=== PATIENT | male | born 1965 | race Caucasian/White ===

== ENCOUNTER 2017-06-08 08:57 | Day surgery (SDC) | payer OTHER ==
[~2017-06-08] VITALS: Ht 182.9 cm; Wt 83.9 kg
[2017-06-08] MEDS ORDERED: METOPROLOL TART25 MG PO (10:05)
[2017-06-08] MEDS ORDERED: LANTUS SOL100 UNIT/1 SUB-Q (10:06)
[2017-06-08] MEDS ORDERED: SIMVASTATIN20 MG PO (10:06)
[2017-06-08] MEDS ORDERED: LISINOPRIL-HCT1 EAC1 PO (10:06)
[2017-06-08] MEDS ORDERED: METFORMIN HCL1000 MG PO (10:07)
[2017-06-08] MEDS ORDERED: GLUCOTROL5 MG PO (10:07)
--- NOTE | 2017-06-08 10:14 | NUR ---
BLOOD SUGAR 145
== END 2017-06-08 12:00 | disposition home or self-care (01) ==
LOC: DSVR 08:57 → OPS 08:57 → DS 10:15 → OPS 12:00
PROVIDERS: Ophthalmology
PROC: 08RJ3JZ Replacement of Right Lens with Synthetic Substitute, Percutaneous Approach (ICD-10-PCS; principal; 2017-06-08 10:15)
DX: H25.813 Combined forms of age-related cataract, bilateral (principal); F17.200 Nicotine dependence, unspecified, uncomplicated; E11.9 Type 2 diabetes mellitus without complications; I10 Essential (primary) hypertension; Z98.890 Other specified postprocedural states; Z79.84 Long term (current) use of oral hypoglycemic drugs; Z79.899 Other long term (current) drug therapy
CPT/HCPCS: J2250

== ENCOUNTER 2017-06-22 08:16 | Day surgery (SDC) | payer OTHER ==
[~2017-06-22] VITALS: Ht 182.9 cm; Wt 83.9 kg
[~2017-06-22 08:16] MED LIST: GLUCOTROL5 MG PO; LANTUS SOL100 UNIT/1 SUB-Q; LISINOPRIL-HCT1 EAC1 PO; METFORMIN HCL1000 MG PO; METOPROLOL TART25 MG PO; SIMVASTATIN20 MG PO
== END 2017-06-22 10:17 | disposition home or self-care (01) ==
LOC: OPS 08:16 → DSVR 08:16 → DS 09:30 → OPS 10:17
PROVIDERS: Ophthalmology
PROC: 08RK3JZ Replacement of Left Lens with Synthetic Substitute, Percutaneous Approach (ICD-10-PCS; principal; 2017-06-22 09:30)
DX: H25.812 Combined forms of age-related cataract, left eye (principal); Z79.4 Long term (current) use of insulin; Z79.899 Other long term (current) drug therapy; Z72.89 Other problems related to lifestyle
CPT/HCPCS: J2250